=== PATIENT | female | born 1985 | race Caucasian/White ===

== ENCOUNTER → 2017-11-19 | Outpatient (CLI) | payer MEDICAID | LOC: GIMAGING 19:08 | PROVIDERS: ATTEND Nurse Practitioner Acute Care | DX: M54.5 Low back pain (principal) | CPT/HCPCS: 72100-PO ==

== ENCOUNTER 2017-11-20 12:36 | Emergency (ER) | payer MEDICAID ==
[2017-11-20 13:52] VITALS: BP 143/82; PULSE 66; RESP 15; TEMP 98.2; O2SAT 97
--- NOTE | 2017-11-20 15:20 | EDPHY ---
General Time Seen by Provider: 11/20/17 12:40 Narrative: CHIEF COMPLAINT: back pain HISTORY OF PRESENT ILLNESS: Patient complains of low back pain. This started suddenly yesterday while performing lift exercises. It is isolated to the lumbar back. She did not have any direct trauma or falls on the area. She has no radiating pain. No numbness, tingling, weakness. No incontinence of bowel or bladder. No retention of bowel or bladder. The pain is severe. It is constant. She went to an urgent care last night where they performed an x-ray that was reportedly normal. She was prescribed Flexeril and meloxicam. She took his last night and awoke this morning at 10:00 a.m. With significant improvement. As she started her day began moving, the pain became worse steadily. She was told to follow up here if the pain worsened no other associated complaints or modifying factors. REVIEW OF SYSTEMS: Ten systems reviewed and are negative unless otherwise noted in the HPI PCP: [facility] [place] SPECIALISTS: None PAST MEDICAL HISTORY: Denies any significant medical history PAST SURGICAL HISTORY: No recent surgeries SOCIAL HISTORY: Nonsmoker. Occasional alcohol. No marijuana use. 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 No meningismus. Respiratory: No retractions or distress. Cardiovascular: Regular rate symmetric DP pulses 2+. Back: No bony tenderness. No crepitus, step-off or deformity. There is tenderness of the lumbar musculature bilaterally. Neurological: A&O, nonfocal, antalgic but steady gait. Strength is symmetric in the knees and ankles. Patellar reflexes symmetric. No footdrop. Symmetric sensation to the dorsum of both feet and plantar surface of both feet. Skin: Warm and dry, no rash. No petechiae or purpura. No fluctuance. No erythema over the lumbar spine. Extremities: Nontender, no pedal edema. Symmetric range of motion. Psychiatric: Mood and affect normal DIFFERENTIAL DIAGNOSES: Including but not limited to acute lumbar strain, acute disc bulge, disc rupture , acute cord compression, cauda equina MDM: 3:05 p.m. Acute low back strain with possible disc bulges injury. There is no evidence of acute cord compression or cauda equina. There is no bony tenderness and she had a normal x-ray performed last night at [facility]. She is ambulatory. I discussed changing her medication to include steroid and short course of pain medication. I did offer an MRI of the low back , although I do not feel is necessary at this time. Patient has declined. She would like tried medications for. At this point I do feel she is stable for discharge home. We discussed medications. We discussed strict ED precautions for any worsening symptoms, sensory changes, incontinence of bowel or bladder. She is comfortable this plan and discharged home stable condition. SUPERVISION: This patient was independently evaluated without direct involvement of or examination by the attending physician. - History Smoking Status: Never smoked - Objective Vital Signs: Initial Vital Signs Temperature (C) 98.2 F 11/20/17 13:49 Heart Rate 66 11/20/17 13:49 Respiratory Rate 15 11/20/17 13:49 Blood Pressure 143/82 H 11/20/17 13:49 O2 Sat (%) 97 11/20/17 13:49 O2 Delivery Mode Room Air Allergies/Adverse Reactions: No Known Allergies Allergy (Unverified 11/20/17 13:46) Home Medications: Medication Instructions Recorded Cyclobenzaprine 11/20/17 Levothyroxine 11/20/17 Meloxicam 11/20/17 oxyCODONE HCL/ACETAMINOPHEN 1 each PO Q4-6PRN PRN #11 tablet 11/20/17 [Percocet 5-325 mg Tablet] predniSONE [Deltasone] 60 mg PO DAILY #15 tablet 11/20/17 Departure - Departure Disposition: Home, Routine, Self-Care Clinical Impression: Acute low back pain without sciatica Qualifiers: Back pain laterality: midline Qualified Code(s): M54.5 - Low back pain Condition: Good Instructions: Oxycodone/Acetaminophen (By mouth), Prednisone (By mouth), Low Back Strain (ED), Lower Back Exercises (ED) Additional Instructions: 1. Percocet pain medication as prescribed as needed 2. Continue your Flexeril as prescribed as needed with caution with narcotic 3. Meloxicam as previously prescribed but only at night as needed 4. Prednisone as prescribed to completion 5. Contact your primary care physician for outpatient follow-up 6. Contact the on-call a r specialist as provided 7. ED precautions for any sudden change in pain, intolerable pain, numbness, tingling, weakness, incontinence of bowel or bladder, retention of bowel or bladder, fever or inability to walk Referrals: [facility] [Outside] - As per Instructions Michele Carter MD [Medical Doctor] - As per Instructions Prescriptions: oxyCODONE HCL/ACETAMINOPHEN [Percocet 5-325 mg Tablet] 1 each PO Q4-6PRN PRN # 11 tablet PRN Reason: Pain, Breakthrough predniSONE [Deltasone] 60 mg PO DAILY #15 tablet
== END 2017-11-20 15:38 | disposition home or self-care (01) ==
DX: M54.5 Low back pain (principal)